=== PATIENT | male | born 1945 | race Caucasian/White ===

== ENCOUNTER 2017-09-26 17:44 | Emergency (ER) | payer MEDICARE, BC, OTHER ==
[~2017-09-26] VITALS: Ht 172.7 cm; Wt 85.0 kg
[2017-09-26 17:45] VITALS: BP 143/87; PULSE 77; RESP 13; TEMP 97.7; O2SAT 78; O2SAT 98
--- NOTE | 2017-09-26 19:14 | PD ---
HPI Chief Complaint: Complaint Time Seen by Provider: 18:58 Travel History International Travel<30 days: No Contact w/Intl Traveler<30days: No Traveled to known affect area: No History of Present Illness HPI c/o 2hr onset of painless hematuria, (pt states that he has had a previous scope and was normal done about 5yrs ago), patient is here vacationing for the weekend and was surprised to see [place] blood when he urinated at a restaurant. denies associated symptoms of: flank pain, urgency/frequency/hesitancy/dysuria/ fever/n/v/d at this point. no alleviating/aggravating factors. denies any anticoagulation all: nkda pmhx: htn, chol, ?bph (pt denies history but this is based off his med list) pshx: acl surgery is only hx PFSH Past Medical History Tetanus Vaccination: < 5 Years Influenza Vaccination: Yes Social History Alcohol Use: No Tobacco Use: No Substance Use: No Allergies-Medications Reported Meds & Prescriptions Reported Meds & Active Scripts Active Reported Flomax (Tamsulosin HCl) 0.4 Mg Cap 0.4 Mg PO HS Simvastatin 20 Mg Tab 10 Mg PO HS Lisinopril 20 Mg Tab 10 Mg PO DAILY Zoloft (Sertraline HCl) 50 Mg Tab 25 Mg PO DAILY Review of Systems General / Constitutional: No: Fever Eyes: No: Visual changes HENT: No: Headaches Cardiovascular: No: Chest Pain or Discomfort Respiratory: No: Shortness of Breath Gastrointestinal: No: Abdominal Pain Genitourinary: Positive: Hematuria Musculoskeletal: No: Pain Skin: No Rash Neurologic: No: Weakness Psychiatric: No: Depression Endocrine: No: Polydipsia Hematologic/Lymphatic: No: Easy Bruising Physical Exam Narrative GENERAL: SKIN: Warm and dry. HEAD: Atraumatic. Normocephalic. EYES: Pupils equal and round. No scleral icterus. No injection or drainage. ENT: No nasal bleeding or discharge. Mucous membranes pink and moist. NECK: Trachea midline. No JVD. CARDIOVASCULAR: Regular rate and rhythm. RESPIRATORY: No accessory muscle use. Clear to auscultation. Breath sounds equal bilaterally. GASTROINTESTINAL: Abdomen soft, non-tender, nondistended. MUSCULOSKELETAL: Extremities without clubbing, cyanosis, or edema. No obvious deformities. NEUROLOGICAL: Awake and alert. No obvious cranial nerve deficits. Motor grossly within normal limits. Five out of 5 muscle strength in the arms and legs. Normal speech. PSYCHIATRIC: Appropriate mood and affect; insight and judgment normal. Data Data Last Documented VS Vital Signs Date Time Temp Pulse Resp B/P (MAP) Pulse Ox O2 Delivery O2 Flow Rate FiO2 09/26/17 17:45 97.7 77 13 143/87 (105) 98 Orders Orders Urinalysis - C+S If Indicated (09/26/17 18:58) Ct Abd/Pel W/O Iv Contrast (09/26/17 18:58) Complete Blood Count With Diff (09/26/17 19:15) Comprehensive Metabolic Panel (09/26/17 19:15) Creatine Kinase (Cpk) (09/26/17 19:15) Prothrombin Time / Inr (Pt) (09/26/17 19:15) Act Partial Throm Time (Ptt) (09/26/17 19:15) Lipase (09/26/17 19:15) Urine Culture (09/26/17 19:07) Radiology Film Requests (09/26/17 ) Ed Discharge Order (09/26/17 20:58) Labs Laboratory Tests Test 09/26/17 19:07 09/26/17 19:50 Urine Color LIGHT-RED Urine Turbidity HAZY Urine pH 6.0 Urine Specific [place] 1.019 Urine Protein 30 mg/dL Urine Glucose (UA) NEG mg/dL Urine Ketones NEG mg/dL Urine Occult Blood LARGE Urine Nitrite NEG Urine Bilirubin NEG Urine Urobilinogen LESS THAN 2.0 MG/DL Urine Leukocyte Esterase SMALL Urine RBC /hpf Urine WBC 24 /hpf Urine Bacteria OCC /hpf Microscopic Urinalysis Comment CULTURE INDICATED White Blood Count 8.8 TH/MM3 Red Blood Count 4.90 MIL/MM3 Hemoglobin 14.3 GM/DL Hematocrit 41.3 % Mean Corpuscular Volume 84.4 FL Mean Corpuscular Hemoglobin 29.2 PG Mean Corpuscular Hemoglobin Concent 34.6 % Red Cell Distribution Width 13.3 % Platelet Count 168 TH/MM3 Mean Platelet Volume 7.7 FL Neutrophils (%) (Auto) 59.6 % Lymphocytes (%) (Auto) 31.4 % Monocytes (%) (Auto) 7.8 % Eosinophils (%) (Auto) 0.8 % Basophils (%) (Auto) 0.4 % Neutrophils # (Auto) 5.2 TH/MM3 Lymphocytes # (Auto) 2.8 TH/MM3 Monocytes # (Auto) 0.7 TH/MM3 Eosinophils # (Auto) 0.1 TH/MM3 Basophils # (Auto) 0.0 TH/MM3 CBC Comment DIFF FINAL Differential Comment Prothrombin Time 10.5 SEC Prothromb Time International Ratio 1.0 RATIO Activated Partial Thromboplast Time 26.8 SEC Blood Urea Nitrogen 26 MG/DL Creatinine 1.16 MG/DL Random Glucose 96 MG/DL Total Protein 7.2 GM/DL Albumin 4.0 GM/DL Calcium Level 9.3 MG/DL Alkaline Phosphatase 62 U/L Aspartate Amino Transf (AST/SGOT) 24 U/L Alanine Aminotransferase (ALT/SGPT) 30 U/L Total Bilirubin 0.6 MG/DL Sodium Level 137 MEQ/L Potassium Level 3.9 MEQ/L Chloride Level 102 MEQ/L Carbon Dioxide Level 26.3 MEQ/L Anion Gap 9 MEQ/L Estimat Glomerular Filtration Rate 62 ML/MIN Total Creatine Kinase 233 U/L Lipase 180 U/L MDM Medical Decision Making Medical Screen Exam Complete: Yes Emergency Medical Condition: Yes Medical Record Reviewed: Yes Differential Diagnosis uti v bladder mass v renal failure Narrative Course ua c/w hematuria but not many wbc's or bacteria to account for uti....more concerning was a bladder mass that is causing some hydronephrosis (patient declined blood work at this point as well as admission, stating that he is from out of town and that he would [facility] take care of those things [facility]). Physician Communication Physician Communication d/w dr murillo who recc ok to follow up with [facility]. patient understands the urgency to see [facility] specialist for further testing and care...mostly due to patient and who are from out of town and just checked into a hotel tonight, they both verbally stated that they will seek care justin on friday and will take ct CD copy to share with his doctors. i made clear to make the patient and understand that i do not reccomend discharge but that it was at their insistence. 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 Also you and your understand that discharge was not my reccomendation and as such you assume responsibility of any complications arising from delay in care. Disposition: 07 AGAINST MEDICAL ADVICE Condition: Stable Curry Soto MD Sep 26, 2017 19:14
[2017-09-26] MEDS ORDERED: LISI-515 PO (19:17)
[2017-09-26] MEDS ORDERED: ZOLO50TA PO (19:17)
[2017-09-26] MEDS ORDERED: SIMV20TA PO (19:17)
[2017-09-26] MEDS ORDERED: TAMS5CAP PO (19:17)
[2017-09-26 19:56] LABS: BACTERIA, URINE OCC /hpf; BILIRUBIN, URINE NEG (NEG); BLOOD, URINE LARGE (NEG); GLUCOSE,URINE NEG (NEG); KETONE, URINE NEG (NEG); NITRITE,URINE NEG (NEG); URINE LEUKOCYTE ESTERASE SMALL (NEG)
[2017-09-26 19:57] LABS: URINE COLOR LIGHT-RED (YELLW/STRAW)
--- NOTE | 2017-09-26 20:02 | RADRPT ---
EXAM DATE/TIME: 09/26/2017 19:31 [facility] COMPARISON: No previous studies available for comparison. INDICATIONS : Hematuria. ORAL CONTRAST: No oral contrast ingested. RADIATION DOSE: 10.54 CTDIvol (mGy) MEDICAL HISTORY : None SURGICAL HISTORY : None. ENCOUNTER: Initial ACUITY: 1 day PAIN SCALE: 4/10 LOCATION: abdomen TECHNIQUE: Volumetric scanning of the abdomen and pelvis was performed. Using automated exposure control and ad justment of the mA and/or kV according to patient size, radiation dose was kept as low as reasonably achievable to obtain optimal diagnostic quality images. DICOM format image data is available electro nically for review and comparison. FINDINGS: Lung bases are clear. There is severe right-sided hydronephrosis which appears somewhat chronic right renal cortical atroph y. The right ureter is markedly dilated a large fluid filled structure in the pelvis is probably a ve ry dilated ureter or ureterocele. The right posterior bladder wall is thickened which is suspicious for neoplasm such as transitional c ell carcinoma. There is no left-sided hydronephrosis no evidence for obstructive uropathy. No acute findings in the liver, spleen, adrenals or pancreas. No free fluid or free air. No bowel obs truction. CONCLUSION: 1. Abnormal mural thickening of the right posterior bladder wall suspicious for neoplasm such as cardoso sitional cell carcinoma. This probably results in obstruction of the distal right ureter with massive dilatation of the right ureter measuring up to 17 x 9 cm, possibly related to ureterocele as well. T here is severe right-sided hydronephrosis and renal atrophic changes. Shekhar Bond MD on September 26, 2017 at 19:52 Board Certified Radiologist. This report was verified electronically.
[2017-09-26 20:13] LABS: AUTOMATED NEUTROPHIL # 5.2 TH/MM3 (1.8-7.7); BASOPHIL % 0.4 % (0.0-2.0); EOSINOPHIL # 0.1 TH/MM3 (0-0.4); EOSINOPHIL % 0.8 % (0.0-4.0); HEMATOCRIT 41.3 % (39.0-51.0); HEMOGLOBIN 14.3 GM/DL (13.0-17.0); LYMPH % 31.4 % (9.0-44.0); LYMPHOCYTE # 2.8 TH/MM3 (1.0-4.8); MEAN CELL VOLUME 84.4 FL (80.0-100.0); MEAN CORPUSCULAR HEMOGLOBIN 29.2 PG (27.0-34.0); MEAN CORPUSCULAR HGB CONC 34.6 % (32.0-36.0); MEAN PLATELET VOLUME 7.7 FL (7.0-11.0); MONO % 7.8 % (0.0-8.0); MONOCYTE # 0.7 TH/MM3 (0-0.9); NEUT % 59.6 % (16.0-70.0); PLATELET COUNT 168 TH/MM3 (150-450); RED CELL DISTRIBUTION WIDTH 13.3 % (11.6-17.2); WHITE BLOOD COUNT 8.8 TH/MM3 (4.0-11.0)
[2017-09-26 20:28] LABS: AST (GOT) 24 U/L (15-37); BICARBONATE 26.3 MEQ/L (21.0-32.0); BLOOD UREA NITROGEN 26 MG/DL (7-18); CALCIUM 9.3 MG/DL (8.5-10.1); CHLORIDE 102 MEQ/L (98-107); CREATININE 1.16 MG/DL (0.60-1.30); GLOMERULAR FILTRATION RATE 62 ML/MIN (>89); GLUCOSE,RANDOM 96 MG/DL (74-106); LIPASE 180 U/L (73-393); SODIUM (NA) 137 MEQ/L (136-145)
[2017-09-26 20:31] LABS: ALKALINE PHOSPHATASE 62 U/L (45-117); ALT (GPT) 30 U/L (12-78); PROTHROMBIN TIME - PATIENT 10.5 SEC (9.8-11.6); TOTAL BILIRUBIN ADULT 0.6 MG/DL (0.2-1.0); TOTAL PROTEIN 7.2 GM/DL (6.4-8.2)
== END 2017-09-26 21:24 | disposition left against medical advice (07) ==
LOC: NEPD 17:44
DX: D41.4 Neoplasm of uncertain behavior of bladder (principal); N13.39 Other hydronephrosis; R31.0 Gross hematuria
CPT/HCPCS: 74176; 80053; 81001; 82550; 83690; 85025; 85610; 85730; 87086